=== PATIENT | female | born 1975 | race Caucasian/White ===

== ENCOUNTER 2021-04-06 20:36 | Emergency (ER) | payer OTHER ==
[2021-04-06 21:26] LABS: BASOPHIL 0.7 % (0-2); EOSINOPHIL 3.1 % (0-5); HCT 42.4 % (37.0-47.0); HGB 13.6 g/dl (12.5-16.0); LYMPHOCYTE 12.7 % (15-48); MCH 29.1 pg (25.0-31.0); MCHC 32.1 g/dL (32.0-36.0); MCV 90.8 fL (78.0-100.0); MONOCYTE 8.3 % (0-12); MPV 9.9 fL (6.0-9.5); NEUTROPHIL 74.8 % (41-80); NRBC 0; PLT 330 K/uL (150-400); RBC 4.67 M/uL (4.20-5.40); RDW 13.2 % (11.5-14.0); WBC 8.3 K/uL (4.0-10.5)
[2021-04-06 21:42] LABS: ALBUMIN 3.3 g/dL (3.4-5.0); BILIRUBIN - TOTAL 0.3 mg/dL (0.2-1.0); BUN/CREAT RATIO (CALC) 12.3 RATIO; CREATININE 0.73 mg/dL (0.51-0.95); GLOBULIN (CALCULATION) 3.6 g/dL; POTASSIUM 3.6 mmol/L (3.5-5.1); TOTAL PROTEIN 6.9 g/dL (6.4-8.2)
[2021-04-07 00:28] LABS: BILIRUBIN NEGATIVE (NEGATIVE); BLOOD 3+ Ery/uL (NEGATIVE); CLARITY CLEAR (CLEAR); COLOR YELLOW (YELLOW); GLUCOSE (U) NORMAL (NORMAL); LEUKOCYTES NEGATIVE Leu/uL (NEGATIVE); NITRITE NEGATIVE (NEGATIVE); PROTEIN TRACE (LOW) mg/dL (NEGATIVE); SPECIFIC GRAVITY 1.015 (1.001-1.030); UROBILINOGEN 0.2 mg/dL (0.2-1.0); pH 5.5 (5.0-9.0)
[2021-04-07 00:40] LABS: BACTERIA TRACE; URINARY RBC 20-50; URINARY WBC RARE
== END 2021-04-07 01:04 | disposition home or self-care (01) ==
LOC: FER 20:36
PROVIDERS: Emergency Medicine
DX: R06.00 Dyspnea, unspecified (principal); M79.89 Other specified soft tissue disorders; R30.0 Dysuria; Z88.8 Allergy status to other drugs, medicaments and biological substances; Z86.718 Personal history of other venous thrombosis and embolism
CPT/HCPCS: 36415; 71275; 80053; 81001; 84484; 85025; 87088; 93005; 93970; J7030; Q9967

== ENCOUNTER 2021-04-15 02:49 | Emergency (ER) | payer OTHER ==
[2021-04-15 03:52] LABS: BASOPHIL 0.6 % (0-2); HCT 43.1 % (37.0-47.0); HGB 13.7 g/dl (12.5-16.0); LYMPHOCYTE 10.9 % (15-48); MCH 29.2 pg (25.0-31.0); MCHC 31.8 g/dL (32.0-36.0); MCV 91.9 fL (78.0-100.0); MONOCYTE 6.6 % (0-12); MPV 10.6 fL (6.0-9.5); NEUTROPHIL 79.6 % (41-80); NRBC 0; PLT 388 K/uL (150-400); RBC 4.69 M/uL (4.20-5.40); RDW 13.3 % (11.5-14.0); WBC 12.2 K/uL (4.0-10.5)
[2021-04-15 03:55] LABS: BILIRUBIN NEGATIVE (NEGATIVE); BLOOD 3+ Ery/uL (NEGATIVE); CLARITY CLEAR (CLEAR); COLOR YELLOW (YELLOW); GLUCOSE (U) NORMAL (NORMAL); LEUKOCYTES NEGATIVE Leu/uL (NEGATIVE); NITRITE NEGATIVE (NEGATIVE); PROTEIN 2+ mg/dL (NEGATIVE); SPECIFIC GRAVITY >=1.030 (1.001-1.030); UROBILINOGEN 0.2 mg/dL (0.2-1.0)
[2021-04-15 04:01] LABS: BUN/CREAT RATIO (CALC) 16.2 RATIO; CREATININE 0.74 mg/dL (0.51-0.95); POTASSIUM 3.8 mmol/L (3.5-5.1)
[2021-04-15 04:04] LABS: CALCIUM OXALATE CRYSTALS TRACE
[2021-04-15 04:06] LABS: SQUAMOUS EPITHELIAL CELLS RARE
[2021-04-15 04:08] LABS: YEAST PRESENT
[2021-04-15] MEDS ORDERED: BACTRIM DS TAB1 EACH PO ×2 (07:49→08:00)
[2021-04-15] MEDS ORDERED: NORCO 5-325 TA1 EACH PO (08:00)
[2021-04-16 22:05] LABS: CHLAMYDIA TRACHOMATIS, NAA Negative (Negative); NEISSERIA GONORRHOEAE, NAA Negative (Negative)
== END 2021-04-15 08:24 | disposition home or self-care (01) ==
LOC: FER 02:49
PROVIDERS: Emergency Medicine Emergency Medical Services
DX: N30.90 Cystitis, unspecified without hematuria (principal); N88.8 Other specified noninflammatory disorders of cervix uteri; Z85.41 Personal history of malignant neoplasm of cervix uteri
CPT/HCPCS: 36415; 80048; 81001; 85025; 87088; 87491; 87591; J0696; J1885; J7030